=== PATIENT | male | born 1990 | race African-American/Black ===

== ENCOUNTER → 2018-11-07 | Outpatient (CLI) | payer OTHER | END | disposition home or self-care (01) | LOC: LAB 10:29 | PROVIDERS: ATTEND Preventive Medicine Preventive Medicine/Occupational Environmental Medicine | DX: Z02.1 Encounter for pre-employment examination (principal) | CPT/HCPCS: 36415; 86706; 86735; 86762; 86765; 86787 ==

== ENCOUNTER 2019-09-01 08:34 | Emergency (ER) | payer BC, OTHER ==
[~2019-09-01] VITALS: Ht 177.8 cm; Wt 106.6 kg
[2019-09-01 10:35] VITALS: BP 132/74
[2019-09-01] MEDS ORDERED: KETOROLAC TROMETH 60MG/2ML VIAL IM ONE (11:15)
== END 2019-09-01 11:36 | disposition home or self-care (01) ==
LOC: ER 08:34
DX: S46.912A Strain of unspecified muscle, fascia and tendon at shoulder and upper arm level, left arm, initial encounter (principal); X50.0XXA Overexertion from strenuous movement or load, initial encounter; Y93.89 Activity, other specified; Y92.89 Other specified places as the place of occurrence of the external cause; Y99.8 Other external cause status
CPT/HCPCS: 73030; 96372; 99283; J1885

== ENCOUNTER 2023-03-15 13:58 | Emergency (ER) | payer BC, OTHER ==
[~2023-03-15] VITALS: Ht 177.8 cm; Wt 98.8 kg
[2023-03-15 14:34] LABS: Urine Bacteria NONE SEEN /hpf (None Seen); Urine Blood Negative /uL (Negative); Urine Mucus FEW (None Seen); Urine Specific Gravity 1.024 (1.001-1.035); Urine WBC 2 /hpf (0 - 3)
[2023-03-15] MEDS ORDERED: metroNIDAZOLE 500MG/100ML 100 ML IV ONE (16:30)
[2023-03-15] MEDS ORDERED: SODIUM CHLORIDE 0.9% 1,000 ML IV ONE ×2 (16:30)
[2023-03-15] MEDS ORDERED: cefTRIAXone 1GM/50ML D5W 50 ML IV ONE (16:30)
[2023-03-15 21:39] VITALS: BP 117/73
[2023-03-15] MEDS ORDERED: METR375C PO (22:24)
[2023-03-15] MEDS ORDERED: CIPR-173 PO (22:24)
== END 2023-03-15 22:30 | disposition left against medical advice (07) ==
LOC: ER 13:58
DX: R10.84 Generalized abdominal pain (principal); K57.92 Diverticulitis of intestine, part unspecified, without perforation or abscess without bleeding
CPT/HCPCS: 74176; 81001; 83605; 87040; 96365; 96368; 99285; J0696; J3490; J7030; 96367